=== PATIENT | male | born 1945 | race Caucasian/White ===

== ENCOUNTER 2017-07-30 07:24 | Inpatient (IN) | payer OTHER ==
[~2017-07-30] VITALS: Ht 175.3 cm; Wt 80.7 kg
[2017-07-30 08:29] LABS: ABSOLUTE BASOPHIL COUNT 0 /CUMM (0.0-0.2); ABSOLUTE EOSINOPHIL COUNT 0.2 /CUMM (0.0-0.7); ABSOLUTE GRANULOCYTE CT 14.6 /CUMM (1.4-6.5); ABSOLUTE LYMPH COUNT 1.6 /CUMM (1.2-3.4); ABSOLUTE MONOCYTE COUNT 0.7 /CUMM (0.10-0.60); BASOPHIL % 0 % (0.0-2.0); GRANULOCYTE % 85.6 % (42.2-75.2); HEMATOCRIT 39.2 % (42-52); MEAN CORPUSCULAR VOLUME 65.8 FL (80.0-94.0); MEAN PLATELET VOLUME 9.2 FL (7.4-10.4); PLATELET COUNT 246 /CUMM (130-400); RED BLOOD CELL CT 5.95 /CUMM (4.70-6.10); WHITE BLOOD CELL COUNT 17.1 /CUMM (4.8-10.8)
--- NOTE | 2017-07-30 09:15 | ED GI/GU/ABDOMINAL COMPLAINT ---
History of Present Illness General Chief Complaint: Male Genitourinary Problems Stated Complaint: PAINFUL URINATION Source: patient, family, old records Exam Limitations: no limitations Vital Signs & Intake/Output Vital Signs & Intake/Output Vital Signs Date Time Temp Pulse Resp B/P B/P Pulse O2 O2 Flow FiO2 Mean Ox Delivery Rate 07/30 0729 97.8 98 18 145/88 96 Room Air Allergies Coded Allergies: Penicillins (Severe, SWOLLEN TONGUE 07/30/17) Triage Note: PT STATES HE HAS PAIN IN HIS LOWER ABD AND STATES WHEN HE URINATES IT HURTS AND COLÓN. PT STATES THIS ALL BEGAN YESTERDAY ,. Triage Nurses Notes Reviewed? yes Onset: yesterday Duration: day(s):, constant, continues in ED, getting worse Timing: recent history Quality/Severity: aching, fullness, moderate, severe Location: left lower quadrant, suprapubic Radiation: no radiation Activities at Onset: rest Prior Abdominal Problems: none Past Sexual History: Unobtainable at this time Modifying Factors: Worsens With: movement, palpation. Associated Symptoms: abdominal pain, dysuria, loss of appetite HPI: 1 day prior to admission patient complains of painful urination left lower quadrant suprapubic fullness and episode of dizziness and anorexia. Denies fever chills chest pain cough shortness of breath headache vomiting diarrhea rash. Past History Travel History Traveled to [place] past 21 day No Medical History Any Pertinent Medical History? see below for history Cardiovascular: hypertension Cancer(s): THROAT CA Surgical History Surgical History: non-contributory Psychosocial History What is your primary language [place] Tobacco Use: Quit >30 days ago ETOH Use: denies use Illicit Drug Use: denies illicit drug use Family History Hx Contributory? No Review of Systems Review of Systems Constitutional: Reports: no symptoms. EENTM: Reports: no symptoms. Respiratory: Reports: no symptoms. Cardiovascular: Reports: no symptoms. GI: Reports: see HPI, abdominal pain. Genitourinary: Reports: see HPI, dysuria, pain. Musculoskeletal: Reports: no symptoms. Skin: Reports: no symptoms. Neurological/Psychological: Reports: no symptoms. Hematologic/Endocrine: Reports: no symptoms. Immunologic/Allergic: Reports: no symptoms. All Other Systems: Reviewed and Negative Physical Exam Physical Exam General Appearance: well developed/nourished, alert, awake, anxious, moderate distress Head: atraumatic, normal appearance Eyes: Bilateral: normal appearance, PERRL, EOMI, normal inspection. Ears, Nose, Throat, Mouth: hearing grossly normal, moist mucous membrane Neck: normal inspection, supple, full range of motion, normal alignment Respiratory: normal breath sounds, chest non-tender, no respiratory distress, quiet respiration, lungs clear Cardiovascular: regular rate/rhythm, normal peripheral pulses, norml femoral pulses equa Peripheral Pulses: 4+ carotid (R), 4+ carotid (L) Gastrointestinal: normal bowel sounds, soft, distention, tenderness Male Genitals: normal genitalia Back: normal inspection, normal range of motion Extremities: normal range of motion, no ligament instability Neurologic/Psych: no motor/sensory deficits, awake, alert, oriented x 3, normal gait, normal mood/affect, 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 No Sepsis Present: No Sepsis Focused Exam Completed? No Progress Differential Diagnosis: appendicitis, diverticulitis, pyelonephritis, ureterolithiasis, urinary retention, urethritis, UTI/pyelo Plan of Care: Orders Procedure Date/time Status Code Status 07/30 1053 Active Admit to inpatient 07/30 1005 Active EKG 07/30 0926 Active MAGNESIUM 07/30 0807 Complete COMPREHENSIVE METABOLIC PANEL 07/30 0807 Complete CBC WITHOUT DIFFERENTIAL 07/30 0807 Complete CULTURE,URINE 07/30 0736 Active URINALYSIS 07/30 0736 Complete Current Medications Sig/Merline Start time Last Medication Dose Stop Time Status Admin Sodium Chloride 1,000 ML ONCE ONE 07/30 1045 AC 07/30 (Normal Saline 0.9%) 07/30 1844 1049 Ciprofloxacin 400 MG ONCE ONE 07/30 0915 CAN (Cipro) 07/30 0916 Laboratory Tests 07/30/17 0815: Anion Gap 12, Estimated GFR 46 L, BUN/Creatinine Ratio 17.3, Glucose 128 H, Calcium 8.5, Magnesium 1.9, Total Bilirubin 4.0 H, AST 19, ALT 34, Alkaline Phosphatase 52, Total Protein 7.1, Albumin 3.9, Globulin 3.2, Albumin/Globulin Ratio 1.2, CBC w Diff MAN DIFF ORDERED, RBC 5.95, MCV 65.8 L, MCH 21.0 L, MCHC 32.0 L, RDW 16.0 H, MPV 9.2, Gran % 85.6 H, Lymphocytes % 9.3 L, Monocytes % 4.1, Eosinophils % 1.0, Basophils % 0, Absolute Granulocytes 14.6 H, Absolute Lymphocytes 1.6, Absolute Monocytes 0.7 H, Absolute Eosinophils 0.2, Absolute Basophils 0, Platelet Estimate VERIFIED BY SMEAR, Polychromasia 1+, Hypochromic- Microcytic 1+, Poikilocytosis 1+, Basophilic Stippling 1+, Anisocytosis 1+, Microcytic Cells 1+, Ovalocytes 1+ 07/30/17 0737: Urine Color YEL, Urine Clarity CLEAR, Urine pH 6.0, Ur Specific [place] 1.025, Urine Protein NEG, Urine Ketones NEG, Urine Nitrite NEG, Urine Bilirubin NEG, Urine Urobilinogen 1.0, Ur Leukocyte Esterase NEG, Ur Microscopic EXAM NOT REQUIRED, Urine Hemoglobin NEG, Urine Glucose NEG Microbiology 07/30 736 URINE ROUT: Urine Culture - RECD Diagnostic Imaging: Viewed by Me: CT Scan. Discussed w/RAD: CT Scan. Radiology Impression: Free intraperitoneal air probably from acute diverticulitis of the sigmoid colon. Bilateral renal cysts. Fatty liver. Initial ED EKG: normal axis, normal intervals, normal p-waves, normal QRS complex, normal sinus rhythm, no ST T wave changes Rhythm Strip: normal sinus rhythm Departure Departure Time of Disposition: 925 Disposition: STILL A PATIENT Condition: Fair Clinical Impression Primary Impression: Perforation bowel Secondary Impressions: Chronic kidney disease, Diverticulitis, Dysuria, Leukocytosis Referrals: Winston Georges MD (PCP/Family) Departure Forms: Customer Survey General Discharge Information Admission Note Spoke With: Mario Alberto Lezama DO Documentation of Exam: Documentation of any treatments & extenuating circumstances including Concerns Regarding Discharge (functional status, medication knowledge or non-compliance, living conditions, etc.) that warrant an admission rather than observation: Nothing by mouth IV fluids IV antibiotics IV analgesia surgical evaluation medication adjustment continuing care discharge planning Critical Care Note Critical Care Note Critical Care Time: 30-74 min (35)
--- NOTE | 2017-07-30 09:16 | CT SCAN REPORT ---
EXAMINATION: CT ABDOMEN AND PELVIS WITHOUT CONTRAST CLINICAL INFORMATION: Dysuria. Chronic kidney disease. Evaluate for pyelonephritis or stone. COMPARISON: None TECHNIQUE: Multidetector volumetric imaging was performed from the superior aspect of the liver through the pubic symphysis. Sagittal and coronal reformatted images were obtained on the technologist's workstation. DLP: 448 mGy-cm FINDINGS: LUNG BASES: The visualized lung bases are unremarkable. LIVER, GALLBLADDER, AND BILIARY TREE: The liver is low in attenuation suggestive of fatty infiltration. No focal liver lesion is seen. The gallbladder is unremarkable. PANCREAS: Unremarkable. SPLEEN: Unremarkable. ADRENAL GLANDS: Unremarkable. KIDNEYS AND URETERS: There are 2 left renal cysts measuring 3 x 3.5 cm in the upper pole and 2.5 cm in the peripelvic midpole. There is a single left renal cysts measuring 2 cm in the peripelvic left mid to upper pole. No stone is seen. No renal mass is appreciated. No ureteral stone or ureteral dilatation is seen. BLADDER: Unremarkable. GASTROINTESTINAL TRACT: There is free intraperitoneal air. There is evidence of diverticulosis. There is wall thickening, stranding of the fat and small extraluminal air collection adjacent to the anterior proximal sigmoid colon measuring 1 x 3 cm suggestive of acute diverticulitis. Small and large bowel is otherwise unremarkable. The appendix is unremarkable. ABDOMINAL WALL: No significant hernia is appreciated. LYMPH NODES: There are no enlarged lymph nodes. There is no ascites. VASCULAR: Unremarkable. PELVIC VISCERA: The prostate gland is slightly enlarged measuring 3 x 4.8 cm in AP and transverse dimension. OSSEOUS STRUCTURES: There are degenerative changes of the spine. There is a small sclerotic lesion in the right iliac crest probably representing a bone island. IMPRESSION: Free intraperitoneal air probably from acute diverticulitis of the sigmoid colon. Bilateral renal cysts. Fatty liver. Findings were communicated to Dr. Reddy by telephone on 07/30/2017 at 9:10 AM.
--- NOTE | 2017-07-30 09:42 | History & Physical ---
HerreraGail cooper 07/30/17 2508: General Information and HPI MD Statement: I have seen and personally examined SIMA RICHARDSON JR and documented this H&P. The patient is a 71 year old M who presented with a patient stated chief complaint of []. Source of Information: patient Exam Limitations: no limitations History of Present Illness: This is a 71yo M with htn and remote hx of throat cancer treated with radiation more than 20 years ago. He presents to the ED complaining of lower abdominal pain and dysurea that started yesterday evening. Deneis fevers. Denies nasea/ vomiting. Denies change in bowel function. Allergies/Medications Allergies: Coded Allergies: Penicillins (Severe, SWOLLEN TONGUE 07/30/17) Past History Travel History Traveled to [place] past 21 day No Medical History Cardiovascular: hypertension Cancer(s): THROAT CA Surgical History Surgical History: non-contributory Past Family/Social History Psychosocial History Smoking Status: Former Smoker ETOH Use: denies use Illicit Drug Use: denies illicit drug use Sexual History Past Sexual History Unobtainable at this time Review of Systems Review of Systems Constitutional: Denies: chills, fever. Cardiovascular: Denies: no symptoms. Respiratory: Denies: no symptoms. GI: Reports: see HPI. Genitourinary: Reports: see HPI, dysuria. Musculoskeletal: Denies: no symptoms. Exam & Diagnostic Data Last 24 Hrs of Vital Signs/I&O Vital Signs Date Time Temp Pulse Resp B/P B/P Pulse O2 O2 Flow FiO2 Mean Ox Delivery Rate 07/30 0729 97.8 98 18 145/88 96 Room Air Intake & Output 07/30 1600 07/30 0800 07/30 0000 Intake Total Output Total 100 Balance -100 Output, Urine 100 Patient 178 lb Weight Weight Reported by Patient Measurement Method Physical Exam General Appearance Alert, No Acute Distress Skin No Rashes Skin Temp/Moisture Exam: Warm/Dry HEENT Atraumatic, EOMI, Mucous Membr. moist/pink Neck Supple Cardiovascular Regular Rate Lungs Clear to Auscultation Abdomen Normal Bowel Sounds, Soft, tender in lower abdomen, no rebound tenderness, +Rosving sign Extremities No Clubbing, No Cyanosis, No Edema, Normal Pulses, No Tenderness/ Swelling Last 24 Hrs of Labs/Félix: Laboratory Tests 07/30/17 0815: Anion Gap 12, Estimated GFR 46 L, BUN/Creatinine Ratio 17.3, Glucose 128 H, Calcium 8.5, Magnesium 1.9, Total Bilirubin 4.0 H, AST 19, ALT 34, Alkaline Phosphatase 52, Total Protein 7.1, Albumin 3.9, Globulin 3.2, Albumin/Globulin Ratio 1.2, CBC w Diff MAN DIFF ORDERED, RBC 5.95, MCV 65.8 L, MCH 21.0 L, MCHC 32.0 L, RDW 16.0 H, MPV 9.2, Gran % 85.6 H, Lymphocytes % 9.3 L, Monocytes % 4.1, Eosinophils % 1.0, Basophils % 0, Absolute Granulocytes 14.6 H, Absolute Lymphocytes 1.6, Absolute Monocytes 0.7 H, Absolute Eosinophils 0.2, Absolute Basophils 0, Platelet Estimate VERIFIED BY SMEAR, Polychromasia 1+, Hypochromic- Microcytic 1+, Poikilocytosis 1+, Basophilic Stippling 1+, Anisocytosis 1+, Microcytic Cells 1+, Ovalocytes 1+ 07/30/17 0737: Urine Color YEL, Urine Clarity CLEAR, Urine pH 6.0, Ur Specific [place] 1.025, Urine Protein NEG, Urine Ketones NEG, Urine Nitrite NEG, Urine Bilirubin NEG, Urine Urobilinogen 1.0, Ur Leukocyte Esterase NEG, Ur Microscopic EXAM NOT REQUIRED, Urine Hemoglobin NEG, Urine Glucose NEG Microbiology 07/30 736 URINE ROUT: Urine Culture - RECD Diagnostic Data Other Results EXAM TYPE: CAT - CT ABD & PELVIS W/O IV CONTRAS EXAMINATION: CT ABDOMEN AND PELVIS WITHOUT CONTRAST CLINICAL INFORMATION: Dysuria. Chronic kidney disease. Evaluate for pyelonephritis or stone. COMPARISON: None TECHNIQUE: Multidetector volumetric imaging was performed from the superior aspect of the liver through the pubic symphysis. Sagittal and coronal reformatted images were obtained on the technologist's workstation. DLP: 448 mGy-cm FINDINGS: LUNG BASES: The visualized lung bases are unremarkable. LIVER, GALLBLADDER, AND BILIARY TREE: The liver is low in attenuation suggestive of fatty infiltration. No focal liver lesion is seen. The gallbladder is unremarkable. PANCREAS: Unremarkable. SPLEEN: Unremarkable. ADRENAL GLANDS: Unremarkable. KIDNEYS AND URETERS: There are 2 left renal cysts measuring 3 x 3.5 cm in the upper pole and 2.5 cm in the peripelvic midpole. There is a single left renal cysts measuring 2 cm in the peripelvic left mid to upper pole. No stone is seen. No renal mass is appreciated. No ureteral stone or ureteral dilatation is seen. BLADDER: Unremarkable. GASTROINTESTINAL TRACT: There is free intraperitoneal air. There is evidence of diverticulosis. There is wall thickening, stranding of the fat and small extraluminal air collection adjacent to the anterior proximal sigmoid colon measuring 1 x 3 cm suggestive of acute diverticulitis. Small and large bowel is otherwise unremarkable. The appendix is unremarkable. ABDOMINAL WALL: No significant hernia is appreciated. LYMPH NODES: There are no enlarged lymph nodes. There is no ascites. VASCULAR: Unremarkable. PELVIC VISCERA: The prostate gland is slightly enlarged measuring 3 x 4.8 cm in AP and transverse dimension. OSSEOUS STRUCTURES: There are degenerative changes of the spine. There is a small sclerotic lesion in the right iliac crest probably representing a bone island. IMPRESSION: Free intraperitoneal air probably from acute diverticulitis of the sigmoid colon. Bilateral renal cysts. Fatty liver. Findings were communicated to Dr. Reddy by telephone on 07/30/2017 at 9:10 AM. DICTATED BY: Madi STAPLES,Leydi Morgan DATE/TIME DICTATED:07/30/17902 SAW STRAIGHTENER:NISHA DATE/TIME TRANSCRIBED:07/30/17902 Assessment/Plan Assessment: this is a 70yo M with hx of htn and throat CA now here with likely diverticulitis with perforation by CT. Stable. Admit for IV ABX- Cipro/Flagyl PT IS ALLERGIC TO PENICILLIN IVF pain management bowel rest- ice chips and sips with meds ok FU am labs regular home meds dvt ppx- hsq and alps, encourage ambulation As Ranked By This Provider Problem List: 1. Diverticulitis Core Measures/Misc (10/23) Acute Coronary Syndrome ACS Diagnosis: No Congestive Heart Failure Congestive Heart Failure Diagnosis No Cerebrovascular Accident CVA/TIA Diagnosis: No VTE (View Protocol) VTE Risk Factors Acute Medical Illness No Mechanical VTE Prophylaxis d/t N/A MechProphylax Ordered No VTE Pharm Prophylaxis d/t NA PharmProphylax ordered Sepsis (View protocol) Sepsis Present: No If YES complete Sepsis Event Note If YES complete Sepsis Event Note Mario Alberto Lezama DO 07/30/17 2354: General Information and HPI Allergies/Medications Home Med list Aspirin (Ecotrin*) 81 MG TABLET. 1 TAB PO DAILY HEART/BLOOD (Reported) Losartan/Hydrochlorothiazide (Losartan-Hctz 100-25 MG Tab) 100 MG-25 MG TABLET 1 TAB PO DAILY BP (Reported) Core Measures/Misc (10/23) Sepsis (View protocol) If YES complete Sepsis Event Note If YES complete Sepsis Event Note Attending MD Review Statement Attending Statement Attending MD Statement: examined this patient, discuss w/resident/PA/AIRCRAFT LINE ASSEMBLER, agreed w/resident/PA/AIRCRAFT LINE ASSEMBLER, reviewed EMR data (avail), reviewed images Attending Assessment/Plan: Patient seen and examined, agree with above. Abdominal pain and dysuria since last night, pain became more severe and he presented to the ED. Currently laying comfortable in bed and reports improvement in abdominal pain. AVSS. Abd-soft, + LLQ tenderness, no peritoneal signs. WBC 17. CT scan - + free intraperitoneal air, +diverticulitis with a small air/fluid collection in sigmoid colon. Given patients overall clinical stability and no signs of diffuse peritonitis will treat conservatively for now. NPO/IVF/IV Abx, serial abdominal exams, Labs in AM , I did explain that if clinically he worsens he may need an emergent laparotomy with an ostomy. Patient understands everything and agrees with the plan. D/W ED staff.
--- NOTE | 2017-07-30 11:47 | Admission Core Measures ---
Acute Coronary Syndrome (CM) ACS Core Measures Acute Coronary Syndrome Diagnosis No Congestive Heart Failure (NEW) CHF Core Measures Congestive Heart Failure Diagnosis No Cerebrovascular Accident CVA Core Measures CVA/TIA Diagnosis No Venous Thromboembolism VTE Core [place] (View Protocol) VTE Risk Factors Acute Medical Illness No Mechanical VTE Prophylaxis d/t N/A MechProphylax Ordered No VTE Pharm Prophylaxis d/t NA PharmProphylax ordered Problem List As ranked by this Provider includes Assessment & Plan 1. Diverticulitis
[2017-07-30] MEDS ORDERED: LOSARTAN-HCTZ1 EAC2 PO (12:19)
[2017-07-30] MEDS ORDERED: ASPIRIN EC81 M1 PO (12:19)
[2017-07-30 15:30] VITALS: BP 124/60
--- NOTE | 2017-07-30 16:56 | Cons- Medical ---
General Information and HPI Consulting Request Date of Consult: 07/30/17 Requested By: Mario Alberto Lezmaa DO Reason for Consult: Follow the patient medically has slight acute kidney insufficiency Source of Information: patient Exam Limitations: no limitations History of Present Illness: 71-year-old white male known to me for many years he has not wanted to have a colonoscopy in the past. Patient comes in this morning with abdominal pain for 1 day in the lower abdomen maybe some dysuria. Denies any fever no diarrhea. In the emergency room the workup showed a white count of 17,000 and a CAT scan of the abdomen showed some free air in the abdomen probably related to sigmoid diverticulitis, patient was admitted, kept n.p.o. and started on the proper antibiotic therapy. Got some IV fluids will follow kidney function. We will check all the cultures Allergies/Medications Allergies: Coded Allergies: Penicillins (Severe, SWOLLEN TONGUE 07/30/17) Home Med List: Aspirin (Ecotrin*) 81 MG TABLET.DR 1 TAB PO DAILY HEART/BLOOD (Reported) Losartan/Hydrochlorothiazide (Losartan-Hctz 100-25 MG Tab) 100 MG-25 MG TABLET 1 TAB PO DAILY BP (Reported) Current Medications: Current Medications Sig/Merline Start time Last Medication Dose Route Stop Time Status Admin Acetaminophen 1,000 MG Q6H 07/30 1600 AC N/A 1 UNIT IV 07/31 1014 Acetaminophen 1,000 MG Q6 07/30 1200 DC IV 07/31 1159 Ciprofloxacin 400 MG Q12 07/30 2100 CAN Dextrose/Water 200 ML IV Ciprofloxacin 400 MG Q12 07/30 2100 AC Dextrose/Water 200 ML IV Ciprofloxacin 400 MG ONCE ONE 07/30 0930 DC 07/30 Dextrose/Water 200 ML IV 07/30 1029 0942 Ciprofloxacin 400 MG ONCE ONE 07/30 0915 CAN IV 07/30 0916 Dextrose/Sodium 1,000 ML .Q8H 07/30 1545 AC 07/30 Chloride IV 1620 Heparin Sodium 5,000 UNIT Q8 07/30 1548 DC (Porcine) SC Heparin Sodium 5,000 UNIT Q8 07/30 1400 AC (Porcine) SC Hydrochlorothiazide 25 MG DAILY 07/31 0900 AC PO Losartan Potassium 100 MG DAILY 07/31 0900 AC PO Metronidazole 500 MG IQ8 07/30 1600 CAN N/A 1 UNIT IV Metronidazole 500 MG IQ8 07/30 1600 AC N/A 1 UNIT IV Metronidazole 500 MG ONCE ONE 07/30 0915 DC 07/30 N/A 1 UNIT IV 07/30 1014 0926 Morphine Sulfate 2 MG Q4P PRN 07/30 1600 AC IV Morphine Sulfate 4 MG Q4H PRN 07/30 1600 AC 07/30 IV 1611 Morphine Sulfate 2 MG Q2P PRN 07/30 1545 DC IV Morphine Sulfate 4 MG Q2P PRN 07/30 1545 DC IV Morphine Sulfate 4 MG ONCE ONE 07/30 1045 DC 07/30 IV 07/30 1046 1049 Morphine Sulfate 0 .STK-MED ONE 07/30 1043 DC .ROUTE Morphine Sulfate 0 .STK-MED ONE 07/30 0934 DC .ROUTE Morphine Sulfate 4 MG ONCE ONE 07/30 0930 DC 07/30 IV 07/30 0931 0942 Ondansetron HCl 4 MG Q6P PRN 07/30 1545 AC IV Phenazopyridine HCl 0 .STK-MED ONE 07/30 0820 DC PO Phenazopyridine HCl 200 MG ONCE ONE 07/30 0815 DC 07/30 PO 07/30 0816 0821 Sodium Chloride 1,000 ML ONCE ONE 07/30 1045 DC 07/30 IV 07/30 1844 1049 Sodium Chloride 1,000 ML BOLUS ONE 07/30 0815 DC 07/30 IV 07/30 0914 0821 Review of Systems Review of Systems Constitutional: Reports: see HPI. Past History Travel History Traveled to [place] past 21 day No Medical History Cardiovascular: hypertension Cancer(s): THROAT CA Surgical History Surgical History: non-contributory Psychosocial History Smoking Status: Former Smoker ETOH Use: denies use Illicit Drug Use: denies illicit drug use Exam & Diagnostic Data Last 24 Hrs of Vital Signs/I&O Vital Signs Date Time Temp Pulse Resp B/P B/P Pulse O2 O2 Flow FiO2 Mean Ox Delivery Rate 07/30 1400 98.5 88 20 146/81 96 Room Air 07/30 1056 98.1 89 18 140/86 95 Room Air Room Air 07/30 0900 96 20 138/78 96 Room Air 07/30 0729 97.8 98 18 145/88 96 Room Air Intake & Output 07/30 1600 07/30 0800 07/30 0000 Intake Total Output Total 350 100 Balance -350 -100 Output, Urine 350 100 Patient 178 lb Weight Weight Reported by Patient Measurement Method Physical Exam General Appearance: well developed/nourished, no apparent distress, alert, awake Head: atraumatic Eyes: Bilateral: normal appearance, PERRL, EOMI. Ears, Nose, Throat: normal pharynx Neck: supple, JVD Respiratory: decreased breath sounds Cardiovascular: regular rate/rhythm Gastrointestinal: soft, tenderness Rectal: deferred Back: normal inspection Extremities: no edema Neurologic/Psych: no motor/sensory deficits, awake, alert, oriented x 3, director of collections and archives II- XII nml as tested Cranial Nerves: normal hearing, normal speech, PERRL Skin: intact, normal color, warm/dry Last 24 Hrs of Labs/Félix: Laboratory Tests 07/30/17 0815: Anion Gap 12, Estimated GFR 46 L, BUN/Creatinine Ratio 17.3, Glucose 128 H, Calcium 8.5, Magnesium 1.9, Total Bilirubin 4.0 H, AST 19, ALT 34, Alkaline Phosphatase 52, Total Protein 7.1, Albumin 3.9, Globulin 3.2, Albumin/Globulin Ratio 1.2, CBC w Diff MAN DIFF ORDERED, RBC 5.95, MCV 65.8 L, MCH 21.0 L, MCHC 32.0 L, RDW 16.0 H, MPV 9.2, Gran % 85.6 H, Lymphocytes % 9.3 L, Monocytes % 4.1, Eosinophils % 1.0, Basophils % 0, Absolute Granulocytes 14.6 H, Absolute Lymphocytes 1.6, Absolute Monocytes 0.7 H, Absolute Eosinophils 0.2, Absolute Basophils 0, Platelet Estimate VERIFIED BY SMEAR, Polychromasia 1+, Hypochromic- Microcytic 1+, Poikilocytosis 1+, Basophilic Stippling 1+, Anisocytosis 1+, Microcytic Cells 1+, Ovalocytes 1+ 07/30/17 0737: Urine Color YEL, Urine Clarity CLEAR, Urine pH 6.0, Ur Specific [place] 1.025, Urine Protein NEG, Urine Ketones NEG, Urine Nitrite NEG, Urine Bilirubin NEG, Urine Urobilinogen 1.0, Ur Leukocyte Esterase NEG, Ur Microscopic EXAM NOT REQUIRED, Urine Hemoglobin NEG, Urine Glucose NEG Assessment/Plan Assessment/Plan None Problem List: 1. Perforation bowel 2. Diverticulitis 3. Leukocytosis 4. Dysuria 5. STEPHEN (acute kidney injury) Copies To: Mario Alberto Lezama DO; José Manuel STAPLESWinston Acknowledgment - Thank you for your consult request.
[2017-07-30 21:51] VITALS: BP 120/60
[2017-07-31 06:08] VITALS: BP 106/70
--- NOTE | 2017-07-31 07:33 | PN- Student ---
Humphrey Chavez 07/31/17 0713: Subjective Subjective: 7/10 abdominal pain, feels more acutely when moving/sitting up. Pain felt diffuse across inferior portion of the abdomen. No nausea, no vomiting, no bowel movents. Frequent flatus. Frequent urination, no more dysuria. Ambulates to bathroom. No chest pain, no shortness of breath, no calf pain. Objective Objective: Vitals: Temp: 97.0=Tcurrent 99.6=Tmax Pulse: 81 Respiratory Rate: 20 BP: 106/70 Pulse ox: 93 on room air I/O's I: 500 IV 8hr/500 IV 24hr O: 350 urine 8hr/800 urine 24hr Imaging: None Physical Exam: General: no acute distress. alert and oriented to time and place Pulm: clear to auscultation bilaterally Cardio: s1,s2, RRR Abdomen: soflty distended, +bowel sounds, tender with guarding in left illiac region. Extremities: calves soft, non tender bilaterally. DP/PT 2+ pulses Results Results: Laboratory Tests 07/30/17 0815: Anion Gap 12, Estimated GFR 46 L, BUN/Creatinine Ratio 17.3, Glucose 128 H, Calcium 8.5, Magnesium 1.9, Total Bilirubin 4.0 H, AST 19, ALT 34, Alkaline Phosphatase 52, Total Protein 7.1, Albumin 3.9, Globulin 3.2, Albumin/Globulin Ratio 1.2, CBC w Diff MAN DIFF ORDERED, RBC 5.95, MCV 65.8 L, MCH 21.0 L, MCHC 32.0 L, RDW 16.0 H, MPV 9.2, Gran % 85.6 H, Lymphocytes % 9.3 L, Monocytes % 4.1, Eosinophils % 1.0, Basophils % 0, Absolute Granulocytes 14.6 H, Absolute Lymphocytes 1.6, Absolute Monocytes 0.7 H, Absolute Eosinophils 0.2, Absolute Basophils 0, Platelet Estimate VERIFIED BY SMEAR, Polychromasia 1+, Hypochromic- Microcytic 1+, Poikilocytosis 1+, Basophilic Stippling 1+, Anisocytosis 1+, Microcytic Cells 1+, Ovalocytes 1+ 07/30/17 0737: Urine Color YEL, Urine Clarity CLEAR, Urine pH 6.0, Ur Specific [place] 1.025, Urine Protein NEG, Urine Ketones NEG, Urine Nitrite NEG, Urine Bilirubin NEG, Urine Urobilinogen 1.0, Ur Leukocyte Esterase NEG, Ur Microscopic EXAM NOT REQUIRED, Urine Hemoglobin NEG, Urine Glucose NEG Microbiology 07/30 0737 URINE ROUT: Urine Culture - RECD Assessment/Plan Assessment: 71 year old male Hospital day 1 with diverticulitis on medical management improving with less pain and no more dysuria. Plan: NPO IV fluids Cipro/flagyl Continue pain control plan Zofran for nausea Continue home meds ALPS/Heparin subQ for DVT prophylaxis Discuss with preceptor Mario Alberto Lezama DO 07/31/17 1539: Attending MD Review Statement Attending Sign Off Attending Cosign Statement: I have: examined this patient, reviewed [employer] EMR data, personally reviewd images, discussd w/resident/PA/SYSTEMS DEVELOPMENT CONSULTANT, discussed mgmt plan w/pt, agreed w/resident/ PA/SYSTEMS DEVELOPMENT CONSULTANT. Other Findings: Patient seen and examined, agree with above. Feels better, less pain, no more dysuria AVSS UO ok Abd-softly distended, LLQ tenderness Labd - WBC down to 12 -Cont IV Abx -NPO/IVF -IS/OOB
[2017-07-31 09:09] LABS: ABSOLUTE EOSINOPHIL COUNT 0.3 /CUMM (0.0-0.7); MEAN CORPUSCULAR HGB CONC 31.6 G/DL (33.0-37.0)
[2017-07-31 09:45] VITALS: BP 112/70
[2017-07-31 09:47] LABS: ABSOLUTE BASOPHIL COUNT 0.1 /CUMM (0.0-0.2); ABSOLUTE GRANULOCYTE CT 9.3 /CUMM (1.4-6.5); ABSOLUTE LYMPH COUNT 1.9 /CUMM (1.2-3.4); BASOPHIL % 0.5 % (0.0-2.0); GRANULOCYTE % 74.5 % (42.2-75.2); MEAN CORPUSCULAR HGB 20.8 PG (27.0-31.0); MEAN CORPUSCULAR VOLUME 65.8 FL (80.0-94.0); MEAN PLATELET VOLUME 9.5 FL (7.4-10.4); PLATELET COUNT 195 /CUMM (130-400); RED BLOOD CELL CT 5.18 /CUMM (4.70-6.10); WHITE BLOOD CELL COUNT 12.5 /CUMM (4.8-10.8)
[2017-07-31 10:01] LABS: HEMATOCRIT 34.1 % (42-52)
--- NOTE | 2017-07-31 10:35 | PN- Att Addend ---
Attending Addendum Attending Brief Note Patient feeling better less pain less burning with urination. Patient is still n.p.o.. Vital signs are stable no fever. No major changes on physical exam. His white count is 12.5 thousand today. Urine culture negative after 1 day. To continue treatment as per surgery. Follow-up labs. Intake & Output 07/31 1600 07/31 0800 07/31 0000 07/30 1600 07/30 0800 07/30 0000 Intake Total 1000 500 Output Total 300 350 350 100 Balance -300 1000 150 -350 -100 Intake, IV 1000 500 Intake, Oral 0 0 Output, Urine 300 350 350 100 Patient 178 lb 178 lb Weight Weight Reported by Patient Reported by Patient Measurement Method Current Medications Sig/Merline Start time Last Medication Dose Route Stop Time Status Admin Acetaminophen 1,000 MG Q6H 07/30 1600 DC 07/31 N/A 1 UNIT IV 07/31 1014 0316 Acetaminophen 1,000 MG Q6 07/30 1200 DC IV 07/31 1159 Ciprofloxacin 400 MG Q12 07/30 2100 CAN Dextrose/Water 200 ML IV Ciprofloxacin 400 MG Q12 07/30 2100 AC 07/31 Dextrose/Water 200 ML IV 0955 Dextrose/Sodium 1,000 ML .Q8H 07/30 1545 DC 07/31 Chloride IV 0313 Heparin Sodium 5,000 UNIT Q8 07/30 1548 DC (Porcine) SC Heparin Sodium 5,000 UNIT Q8 07/30 1400 AC 07/31 (Porcine) SC 0631 Hydrochlorothiazide 25 MG DAILY 07/31 0900 AC 07/31 PO 0800 Losartan Potassium 100 MG DAILY 07/31 0900 AC 07/31 PO 0801 Metronidazole 500 MG IQ8 07/30 1600 CAN N/A 1 UNIT IV Metronidazole 500 MG IQ8 07/30 1600 AC 07/31 N/A 1 UNIT IV 0801 Morphine Sulfate 2 MG Q4P PRN 07/30 1600 AC IV Morphine Sulfate 4 MG Q4H PRN 07/30 1600 AC 07/30 IV 1611 Morphine Sulfate 2 MG Q2P PRN 07/30 1545 DC IV Morphine Sulfate 4 MG Q2P PRN 07/30 1545 DC IV Morphine Sulfate 4 MG ONCE ONE 07/30 1045 DC 07/30 IV 07/30 1046 1049 Morphine Sulfate 0 .STK-MED ONE 07/30 1043 DC .ROUTE Ondansetron HCl 4 MG Q6P PRN 07/30 1545 AC IV Potassium Chloride 20 MEQ Q8H 07/31 1000 AC Sodium Chloride 1,000 ML IV Sodium Chloride 1,000 ML ONCE ONE 07/30 1045 DC 07/30 IV 07/30 1844 1049 Laboratory Tests 07/31/17 0815: Anion Gap 11, Estimated GFR 50 L, BUN/Creatinine Ratio 12.9, CBC w Diff NO MAN DIFF REQ, RBC 5.18, MCV 65.8 L, MCH 20.8 L, MCHC 31.6 L, RDW 16.0 H, MPV 9.5 , Gran % 74.5, Lymphocytes % 15.4 L, Monocytes % 7.6, Eosinophils % 2.0, Basophils % 0.5, Absolute Granulocytes 9.3 H, Absolute Lymphocytes 1.9, Absolute Monocytes 1.0 H, Absolute Eosinophils 0.3, Absolute Basophils 0.1 07/30/17 0815: Anion Gap 12, Estimated GFR 46 L, BUN/Creatinine Ratio 17.3, Glucose 128 H, Calcium 8.5, Magnesium 1.9, Total Bilirubin 4.0 H, AST 19, ALT 34, Alkaline Phosphatase 52, Total Protein 7.1, Albumin 3.9, Globulin 3.2, Albumin/Globulin Ratio 1.2, CBC w Diff MAN DIFF ORDERED, RBC 5.95, MCV 65.8 L, MCH 21.0 L, MCHC 32.0 L, RDW 16.0 H, MPV 9.2, Gran % 85.6 H, Lymphocytes % 9.3 L, Monocytes % 4.1, Eosinophils % 1.0, Basophils % 0, Absolute Granulocytes 14.6 H, Absolute Lymphocytes 1.6, Absolute Monocytes 0.7 H, Absolute Eosinophils 0.2, Absolute Basophils 0, Platelet Estimate VERIFIED BY SMEAR, Polychromasia 1+, Hypochromic- Microcytic 1+, Poikilocytosis 1+, Basophilic Stippling 1+, Anisocytosis 1+, Microcytic Cells 1+, Ovalocytes 1+ 07/30/17 0737: Urine Color YEL, Urine Clarity CLEAR, Urine pH 6.0, Ur Specific [place] 1.025, Urine Protein NEG, Urine Ketones NEG, Urine Nitrite NEG, Urine Bilirubin NEG, Urine Urobilinogen 1.0, Ur Leukocyte Esterase NEG, Ur Microscopic EXAM NOT REQUIRED, Urine Hemoglobin NEG, Urine Glucose NEG Vital Signs Date Time Temp Pulse Resp B/P B/P Pulse O2 O2 Flow FiO2 Mean Ox Delivery Rate 07/31 0945 87 112/70 07/31 0801 84 112/72 07/31 0608 97.0 81 20 106/70 93 Room Air 07/30 2151 99.5 93 18 120/60 92 Room Air 07/30 1652 95 Room Air 07/30 1530 98.4 96 18 124/60 95 Room Air 07/30 1400 98.5 88 20 146/81 96 Room Air 07/30 1056 98.1 89 18 140/86 95 Room Air Room Air Potassium 3.4, please replace.
[2017-07-31 14:18] VITALS: BP 120/64
[2017-07-31 22:25] VITALS: BP 140/80
[2017-08-01 06:34] VITALS: BP 110/70
--- NOTE | 2017-08-01 07:29 | PN- Student ---
See Addendum Humphrey Chavez 08/01/17 0713: Subjective Subjective: 7/10 pain, only feels when coughing or having bowel movements. Frequent watery brown bowel movements begining yesterday. frequent flatus. Vomited once yesterday. Emesis was yellow/brown. No nausea. Oob frequently to bathroom. no dysuria. no chest pain, no shortness of breath, no calf pain. Objective Objective: Vitals: Temperature: 97.9 = Tcurrent 98.4= T max Pulse: 89 Respiratory Rare: 20 BP: 110/70 Pulse Ox: 95 room air I/O I: 1250 IV 8hrs/ 3250 IV 24hrs O: Not recorded 8hrs/ 300 24hrs Imaging: None Physical Exam: General: No acute distress. Oriented to time and place Pulm: clear bilaterally Cardio: s1,s2, RRR Abdomen: softly distended, + bowel sounds, LLQ tenderness with guarding Extermities: calves soft bilaterally, DP/PT 2+ pulses Results Results: Laboratory Tests 07/31/17 0815: Anion Gap 11, Estimated GFR 50 L, BUN/Creatinine Ratio 12.9, CBC w Diff NO MAN DIFF REQ, RBC 5.18, MCV 65.8 L, MCH 20.8 L, MCHC 31.6 L, RDW 16.0 H, MPV 9.5 , Gran % 74.5, Lymphocytes % 15.4 L, Monocytes % 7.6, Eosinophils % 2.0, Basophils % 0.5, Absolute Granulocytes 9.3 H, Absolute Lymphocytes 1.9, Absolute Monocytes 1.0 H, Absolute Eosinophils 0.3, Absolute Basophils 0.1 07/30/17 0815: Anion Gap 12, Estimated GFR 46 L, BUN/Creatinine Ratio 17.3, Glucose 128 H, Calcium 8.5, Magnesium 1.9, Total Bilirubin 4.0 H, AST 19, ALT 34, Alkaline Phosphatase 52, Total Protein 7.1, Albumin 3.9, Globulin 3.2, Albumin/Globulin Ratio 1.2, CBC w Diff MAN DIFF ORDERED, RBC 5.95, MCV 65.8 L, MCH 21.0 L, MCHC 32.0 L, RDW 16.0 H, MPV 9.2, Gran % 85.6 H, Lymphocytes % 9.3 L, Monocytes % 4.1, Eosinophils % 1.0, Basophils % 0, Absolute Granulocytes 14.6 H, Absolute Lymphocytes 1.6, Absolute Monocytes 0.7 H, Absolute Eosinophils 0.2, Absolute Basophils 0, Platelet Estimate VERIFIED BY SMEAR, Polychromasia 1+, Hypochromic- Microcytic 1+, Poikilocytosis 1+, Basophilic Stippling 1+, Anisocytosis 1+, Microcytic Cells 1+, Ovalocytes 1+ 07/30/17 0737: Urine Color YEL, Urine Clarity CLEAR, Urine pH 6.0, Ur Specific [place] 1.025, Urine Protein NEG, Urine Ketones NEG, Urine Nitrite NEG, Urine Bilirubin NEG, Urine Urobilinogen 1.0, Ur Leukocyte Esterase NEG, Ur Microscopic EXAM NOT REQUIRED, Urine Hemoglobin NEG, Urine Glucose NEG Microbiology 07/30 736 URINE ROUT: Urine Culture - RES Assessment/Plan Assessment: 71 year old male hospital day 2 diverticululitis with perforation. doing well with return of bowel function and improved pain. Plan: IV Fluids NPO for now, consider advancing to clears Review pending labs Continue ABX Pain control PRN Zofran PRN nausea Encourage Oob Heparin Sub Q for DVT prophylaxis Incentive Spirometry 10x hour continue home meds Discuss with preceptor Gail Kwok 08/01/17 0751: Assessment/Plan Plan: AGREE WITH ABOVE. PT FEELING MUCH BETTER, LESS PAIN, MULT LOOSE STOOLS. DID HAVE ONE EPISODE OF VOMITING LAST NIGHT WHILE HE WAS COUGHING AND HAVING SOME REFULX. PT DENIES ANY NAUSEA. FELS READY TO ADVANCE DIET. AMBULATING. VOIDING ABD EXAM- LESS TENDER, +BOWEL SOUNDS, NON DISTENDED PLAN- MAY ADVANCE TO CLEARS AT LUNCH TODAY CONT IV ABX WHILE IN HOSPITAL PAIN MANAGEMENT FU AM LABS CONT HSQ FOR DVT PPX WILL DISCUSS WITH ATTENDING
[2017-08-01 08:07] LABS: ABSOLUTE BASOPHIL COUNT 0 /CUMM (0.0-0.2); ABSOLUTE EOSINOPHIL COUNT 0.4 /CUMM (0.0-0.7); ABSOLUTE LYMPH COUNT 1.5 /CUMM (1.2-3.4); ABSOLUTE MONOCYTE COUNT 0.8 /CUMM (0.10-0.60); BASOPHIL % 0.1 % (0.0-2.0); EOSINOPHIL % 2.9 % (0-5); GRANULOCYTE % 78.5 % (42.2-75.2); HEMATOCRIT 37.3 % (42-52); MEAN CORPUSCULAR HGB 20.8 PG (27.0-31.0); MEAN CORPUSCULAR HGB CONC 31.5 G/DL (33.0-37.0); MEAN CORPUSCULAR VOLUME 66.1 FL (80.0-94.0); MEAN PLATELET VOLUME 9.3 FL (7.4-10.4); PLATELET COUNT 236 /CUMM (130-400); RBC DISTRIBUTION WIDTH 16.2 % (11.5-14.5); RED BLOOD CELL CT 5.64 /CUMM (4.70-6.10); WHITE BLOOD CELL COUNT 12.8 /CUMM (4.8-10.8)
--- NOTE | 2017-08-01 10:09 | PN- Att Addend ---
Attending Addendum Attending Brief Note Last night had some diarrhea. The lower abdominal dysconfort is less. Vital signs stable, no fever.No major changes on physical WBC 12.8. To continue treatment as per surgery, check stools. follow up labs. patient will start clear liquid diet. Intake & Output 08/01 1600 08/01 0400 07/31 1600 07/31 0400 07/30 1600 07/30 0400 Intake Total 1650 1250 2000 500 Output Total 300 350 450 Balance 1650 1250 1700 150 -450 Intake, IV 1650 1250 2000 500 Intake, Oral 0 0 Number 3 2 Bowel Movements Output, Urine 300 350 450 Patient 178 lb 178 lb Weight Weight Reported by Patient Reported by Patient Measurement Method Current Medications Sig/[place] Start time Last Medication Dose Route Stop Time Status Admin Acetaminophen 1,000 MG Q6P PRN 07/31 2014 AC 07/31 N/A 1 UNIT IV 08/01 Acetaminophen 1,000 MG Q6H 07/30 1600 DC 07/31 N/A 1 UNIT IV 07/31 1014 1131 Ciprofloxacin 400 MG Q12 07/30 2100 AC 08/01 Dextrose/Water 200 ML IV 0947 Heparin Sodium 5,000 UNIT Q8 07/30 1400 AC 08/01 (Porcine) SC 0603 Hydrochlorothiazide 25 MG DAILY 07/31 0900 AC 08/01 PO 0814 Losartan Potassium 100 MG DAILY 07/31 0900 AC 08/01 PO 0814 Metronidazole 500 MG IQ8 07/30 1600 AC 08/01 N/A 1 UNIT IV 0814 Morphine Sulfate 2 MG Q4P PRN 07/30 1600 AC IV Morphine Sulfate 4 MG Q4H PRN 07/30 1600 AC 07/30 IV 1611 Ondansetron HCl 4 MG Q6P PRN 07/30 1545 AC IV Potassium Chloride 40 MEQ Q8H 07/31 1800 AC 08/01 Dextrose/Sodium 1,000 ML IV 0950 Chloride Potassium Chloride 20 MEQ Q8H 07/31 1645 DC Dextrose/Sodium 1,000 ML IV Chloride Potassium Chloride 40 MEQ 125 MLS/HR 07/31 1630 CAN IV Potassium Chloride 20 MEQ Q8H 07/31 1000 DC 07/31 Sodium Chloride 1,000 ML IV 1231 Laboratory Tests 08/01/17 0715: Anion Gap 11, Estimated GFR 54 L, BUN/Creatinine Ratio 10.8, CBC w Diff NO MAN DIFF REQ, RBC 5.64, MCV 66.1 L, MCH 20.8 L, MCHC 31.5 L, RDW 16.2 H, MPV 9.3 , Gran % 78.5 H, Lymphocytes % 12.0 L, Monocytes % 6.5, Eosinophils % 2.9, Basophils % 0.1, Absolute Granulocytes 10.0 H, Absolute Lymphocytes 1.5, Absolute Monocytes 0.8 H, Absolute Eosinophils 0.4, Absolute Basophils 0 07/31/17 0815: Anion Gap 11, Estimated GFR 50 L, BUN/Creatinine Ratio 12.9, CBC w Diff NO MAN DIFF REQ, RBC 5.18, MCV 65.8 L, MCH 20.8 L, MCHC 31.6 L, RDW 16.0 H, MPV 9.5 , Gran % 74.5, Lymphocytes % 15.4 L, Monocytes % 7.6, Eosinophils % 2.0, Basophils % 0.5, Absolute Granulocytes 9.3 H, Absolute Lymphocytes 1.9, Absolute Monocytes 1.0 H, Absolute Eosinophils 0.3, Absolute Basophils 0.1 07/30/17 0815: Anion Gap 12, Estimated GFR 46 L, BUN/Creatinine Ratio 17.3, Glucose 128 H, Calcium 8.5, Magnesium 1.9, Total Bilirubin 4.0 H, AST 19, ALT 34, Alkaline Phosphatase 52, Total Protein 7.1, Albumin 3.9, Globulin 3.2, Albumin/Globulin Ratio 1.2, CBC w Diff MAN DIFF ORDERED, RBC 5.95, MCV 65.8 L, MCH 21.0 L, MCHC 32.0 L, RDW 16.0 H, MPV 9.2, Gran % 85.6 H, Lymphocytes % 9.3 L, Monocytes % 4.1, Eosinophils % 1.0, Basophils % 0, Absolute Granulocytes 14.6 H, Absolute Lymphocytes 1.6, Absolute Monocytes 0.7 H, Absolute Eosinophils 0.2, Absolute Basophils 0, Platelet Estimate VERIFIED BY SMEAR, Polychromasia 1+, Hypochromic- Microcytic 1+, Poikilocytosis 1+, Basophilic Stippling 1+, Anisocytosis 1+, Microcytic Cells 1+, Ovalocytes 1+ 07/30/17 0737: Urine Color YEL, Urine Clarity CLEAR, Urine pH 6.0, Ur Specific [place] 1.025, Urine Protein NEG, Urine Ketones NEG, Urine Nitrite NEG, Urine Bilirubin NEG, Urine Urobilinogen 1.0, Ur Leukocyte Esterase NEG, Ur Microscopic EXAM NOT REQUIRED, Urine Hemoglobin NEG, Urine Glucose NEG Microbiology 07/30 736 URINE ROUT: Urine Culture - COMP Microbiology 07/30 736 URINE ROUT: Urine Culture - COMP Vital Signs Date Time Temp Pulse Resp B/P B/P Pulse O2 O2 Flow FiO2 Mean Ox Delivery Rate 08/01 0814 97.9 89 20 132/80 08/01 0634 97.9 89 20 110/70 95 Room Air 07/31 2225 98.4 91 20 140/80 93 Room Air 07/31 1418 98.4 82 20 120/64 96 Room Air Potassium improved.
[2017-08-01 14:19] VITALS: BP 120/85
[2017-08-01 22:42] VITALS: BP 126/80
[2017-08-02 06:20] VITALS: BP 132/80
--- NOTE | 2017-08-02 07:55 | PN- Student ---
William Chavezh 08/02/17 0751: Subjective Subjective: Reduced LLQ pain. watery, approx 12 brown bowel movements similar to before. patient concerned related to ABX. frequent flatus. 1 episode of emesis, occured while coughing. denied blood in emisis or bowel movements. rare belching. No nausea. tolerated clear liquid diet, but reduced appetite. OOB frequently. uses incentive spirometry every hour. no chest pain, no shortness of breath, no calf pain. Objective Objective: Vitals: Temp: 98.1 = Tcurrent, Tmax= 98.3 Pulse rate: 70 Respiratory rate:18 BP:132/80 Pulse Ox 95 room air I/O: I: 120 oral 8hr/ 120 oral 24hr 875 IV 8hr/875 24hr O: not recorded Imaging: none Physical Exam General: No acute distress, alert and oriented Pulm: clear to auscultation bilaterally Cardio; s1,s2,rrr Abdomen: softly distended, +bowel sounds, LLQ tenderness to palpation. Extremities: 2+DP/PT pulse, Calves soft bilaterally Results Results: Laboratory Tests 08/02/17 0645: CBC w Diff Pending, WBC Pending, RBC Pending, Hgb Pending, Hct Pending, MCV Pending, MCH Pending, MCHC Pending, RDW Pending, Plt Count Pending, MPV Pending 08/01/17 0715: Anion Gap 11, Estimated GFR 54 L, BUN/Creatinine Ratio 10.8, CBC w Diff NO MAN DIFF REQ, RBC 5.64, MCV 66.1 L, MCH 20.8 L, MCHC 31.5 L, RDW 16.2 H, MPV 9.3 , Gran % 78.5 H, Lymphocytes % 12.0 L, Monocytes % 6.5, Eosinophils % 2.9, Basophils % 0.1, Absolute Granulocytes 10.0 H, Absolute Lymphocytes 1.5, Absolute Monocytes 0.8 H, Absolute Eosinophils 0.4, Absolute Basophils 0 07/31/17 0815: Anion Gap 11, Estimated GFR 50 L, BUN/Creatinine Ratio 12.9, CBC w Diff NO MAN DIFF REQ, RBC 5.18, MCV 65.8 L, MCH 20.8 L, MCHC 31.6 L, RDW 16.0 H, MPV 9.5 , Gran % 74.5, Lymphocytes % 15.4 L, Monocytes % 7.6, Eosinophils % 2.0, Basophils % 0.5, Absolute Granulocytes 9.3 H, Absolute Lymphocytes 1.9, Absolute Monocytes 1.0 H, Absolute Eosinophils 0.3, Absolute Basophils 0.1 07/30/17 0815: Anion Gap 12, Estimated GFR 46 L, BUN/Creatinine Ratio 17.3, Glucose 128 H, Calcium 8.5, Magnesium 1.9, Total Bilirubin 4.0 H, AST 19, ALT 34, Alkaline Phosphatase 52, Total Protein 7.1, Albumin 3.9, Globulin 3.2, Albumin/Globulin Ratio 1.2, CBC w Diff MAN DIFF ORDERED, RBC 5.95, MCV 65.8 L, MCH 21.0 L, MCHC 32.0 L, RDW 16.0 H, MPV 9.2, Gran % 85.6 H, Lymphocytes % 9.3 L, Monocytes % 4.1, Eosinophils % 1.0, Basophils % 0, Absolute Granulocytes 14.6 H, Absolute Lymphocytes 1.6, Absolute Monocytes 0.7 H, Absolute Eosinophils 0.2, Absolute Basophils 0, Platelet Estimate VERIFIED BY SMEAR, Polychromasia 1+, Hypochromic- Microcytic 1+, Poikilocytosis 1+, Basophilic Stippling 1+, Anisocytosis 1+, Microcytic Cells 1+, Ovalocytes 1+ Assessment/Plan Assessment: 71 year old male hospital day 3 for perforated diverticulitis doing well, tolerating clear liquids, oob, returned bowel function, and reduced wbc count. Plan: Advance diet to low residue Continue Abx, change to PO if dc Continue pain control Continue Antinausea Continue Sub Q heparin/ALPS OOB Continue home meds Plan for discharge Arabella Mesa 08/02/17 1014: Assessment/Plan Plan: AGREE WITH ABOVE PA-S NOTE WILL ADVANCE TO FULLS TODAY AND LOW RESIDUE TOMORROW MORNING IF TOLERATING CONTINUE IV CIPRO / FLAGYL CBC IN AM LIKELY D/C HOME TOMORROW WITH ANTIBIOTICS IF TOLERATING DIET ADVANCEMENT D/W
--- NOTE | 2017-08-02 07:56 | Patient Discharge Instructions ---
Discharge Instructions General Discharge Information You were seen/treated for: acute sigmoid diverticulitis You had these procedures: bowel rest, iv antibiotics Watch for these problems: fever>101.3, increased pain, redness/swelling/drainage, dizziness, shortness of breath, chest pains Diet Continue normal diet: No Recommended Diet: Low Residue Activity Full Activity/No Limits: Yes Activity Self Limited: Yes Acute Coronary Syndrome Inclusion Criteria At DC or during hospital stay patient has or had the following: ACS DIAGNOSIS No Discharge Core Measures Meds if any: Prescribed or Continued at Discharge Meds if any: NOT Prescribed or Continued at Discharge Congestive Heart Failure Inclusion Criteria At DC or during hospital stay patient has or had the following: CHF DIAGNOSIS No Discharge Core Measures Meds if any: Prescribed or Continued at Discharge Meds if any: NOT Prescribed or Continued at Discharge Cerebrovascular accident Inclusion Criteria At DC or during hospital stay patient has or had the following: CVA/TIA Diagnosis No Discharge Core Measures Meds if any: Prescribed or Continued at Discharge Meds if any: NOT Prescribed or Continued at Discharge Venous thromboembolism Inclusion Criteria VTE Diagnosis No VTE Type NONE VTE Confirmed by (Test) NONE Discharge Core Measures - Per Current guidelines, there needs to be overlap - treatment for the first 5 days of Warfarin therapy. - If discharged on Warfarin prior to 5 days of - overlap therapy, the patient will need to be - assessed for post discharge needs including - *Post discharge parental anticoagulation - *Warfarin and/or parental anticoagulation education - *Follow up date to check INR post discharge At least 5 days overlap therapy as Inpatient No Meds if any: Prescribed or Continued at Discharge Note: Overlap Therapy is Warfarin and Anticoagulant Meds if any: NOT Prescribed or Continued at Discharge
[2017-08-02 08:01] LABS: ABSOLUTE BASOPHIL COUNT 0.1 /CUMM (0.0-0.2); ABSOLUTE EOSINOPHIL COUNT 0.4 /CUMM (0.0-0.7); ABSOLUTE GRANULOCYTE CT 6.8 /CUMM (1.4-6.5); ABSOLUTE LYMPH COUNT 1.6 /CUMM (1.2-3.4); ABSOLUTE MONOCYTE COUNT 0.8 /CUMM (0.10-0.60); BASOPHIL % 0.7 % (0.0-2.0); EOSINOPHIL % 4.5 % (0-5); GRANULOCYTE % 70.3 % (42.2-75.2); HEMATOCRIT 35.1 % (42-52); MEAN CORPUSCULAR HGB 20.6 PG (27.0-31.0); MEAN CORPUSCULAR HGB CONC 31.1 G/DL (33.0-37.0); MEAN CORPUSCULAR VOLUME 66.3 FL (80.0-94.0); MEAN PLATELET VOLUME 9.4 FL (7.4-10.4); PLATELET COUNT 233 /CUMM (130-400); RBC DISTRIBUTION WIDTH 16.1 % (11.5-14.5); RED BLOOD CELL CT 5.29 /CUMM (4.70-6.10); WHITE BLOOD CELL COUNT 9.6 /CUMM (4.8-10.8)
[2017-08-02] MEDS ORDERED: CIPRO500 M1 PO ×2 (08:02→10:39)
[2017-08-02] MEDS ORDERED: FLAGYL500 MG PO ×2 (08:02→10:39)
--- NOTE | 2017-08-02 08:05 | Surg Short-stay <48hrs Dis Sum ---
Visit Information Visit Dates Admission Date: 07/30/17 Discharge Date: 08/03/17 Surgical Short Stay DC Summary Admission Diagnosis: acute sigmoid diverticulitis Final Diagnosis: SAME Procedure(s): iv antibiotics and bowel rest Summary/Significant Findings: Presented to the ED on 07/30/17 with abdominal pain. Admitted for acute sigmoid diverticulitis. Treated conservatively with iv cipro / flagyl, and bowel rest. Diet advanced slowly with improvement of symptoms and labs. Nutrition consult provided for dietary review of diverticular dietary considerations. Discharged home with oral antibiotics once tolerating a low residue diet, to complete 2 weeks total of cipro and flagyl. Condition at Discharge: stable Discharge Disposition: home or self care Discharge instructions provided to patient/family: Yes Post discharge follow-up plan: one week follow up with continue oral antibiotics as directed Copies to: José Manuel STAPLES,[place]
--- NOTE | 2017-08-02 10:13 | PN- Att Addend ---
Attending Addendum Attending Brief Note Patient sitting at the edge of the bed, he says his pain is less but he has been having frequent diarrhea. Uncomfortable at the IV site, will change Vital signs are stable, no fever white count 9600. No new changes on physical. Tolerating liquid diet will be advanced a little bit. Will check the stools for infection and treat accordingly. Intake & Output 08/02 1600 08/02 0400 08/01 1600 08/01 0400 07/31 1600 07/31 0400 Intake Total 995 1700 3325 1250 2000 500 Output Total 300 350 Balance 995 1700 3325 1250 1700 150 Intake, IV 875 1000 2825 1250 2000 500 Intake, Oral 120 700 500 0 0 Number 4 2 Bowel Movements Output, Urine 300 350 Patient 178 lb 178 lb Weight Weight Reported by Patient Measurement Method Current Medications Sig/Merline Start time Last Medication Dose Route Stop Time Status Admin Acetaminophen 1,000 MG Q6P PRN 07/31 2014 DC 07/31 N/A 1 UNIT IV 08/01 Ciprofloxacin 400 MG Q12 07/30 2100 AC 08/02 Dextrose/Water 200 ML IV 0918 Heparin Sodium 5,000 UNIT Q8 07/30 1400 AC 08/02 (Porcine) SC 0536 Hydrochlorothiazide 25 MG DAILY 07/31 0900 AC 08/02 PO 0733 Losartan Potassium 100 MG DAILY 07/31 0900 AC 08/02 PO 0733 Metronidazole 500 MG IQ8 07/30 1600 AC 08/02 N/A 1 UNIT IV 0733 Morphine Sulfate 2 MG Q4P PRN 07/30 1600 AC IV Morphine Sulfate 4 MG Q4H PRN 07/30 1600 AC 07/30 IV 1611 Ondansetron HCl 4 MG Q6P PRN 07/30 1545 AC IV Patient Medication 1 ED ONE ONE 08/01 1530 DC 08/01 Teaching ED 08/01 1531 1622 Potassium Chloride 40 MEQ Q8H 07/31 1800 DC 08/02 Dextrose/Sodium 1,000 ML IV 0535 Chloride Vital Signs Date Time Temp Pulse Resp B/P B/P Pulse O2 O2 Flow FiO2 Mean Ox Delivery Rate 08/02 0733 98.1 70 18 132/80 08/02 0620 98.1 70 18 132/80 95 Room Air 08/02 0000 Room Air 08/01 2242 98.3 88 18 126/80 94 08/01 1600 Room Air 08/01 1419 97.8 104 20 120/85 95 Room Air
[2017-08-02 14:41] VITALS: BP 110/75
[2017-08-02 22:11] VITALS: BP 132/70
[2017-08-03 06:46] VITALS: BP 136/68
--- NOTE | 2017-08-03 07:37 | PN- Student ---
Humphrey Chavez 08/03/17 0728: Subjective Subjective: Abdominal pain improved, 04/15, comes and goes. Diarrhea has stopped. Last bowel movement was yesterday. Passing gas frequently. Tolerating diet, but reduced appetite. No nausea, no vomiting. No dysuria, urinates frequently. OOB freqently. No chest pain, no shortness of breath, no calf pain. Objective Objective: Vitals: Temp: 97.8=tcurrent 98.6=tmax Pulse: 76 Respiratory Rate: 76 Blood pressure: 139/68 Pulse Ox: 94 on room air I/O's I- 920 oral 24hr, 1105 IV 24hr O: not recorded Imaging: none Physical Exam: General: no acute distress, alert and oriented Pulm: clear to auscultation bilaterally Cardio s1,s2,rrr Abdomen: softly distended, +bowel sounds, LLQ tenderness with palpation Extremities: 2+ DP/PT pulses, Calves soft and non tender bilaterally Results Results: Laboratory Tests 08/02/17 0645: CBC w Diff NO MAN DIFF REQ, RBC 5.29, MCV 66.3 L, MCH 20.6 L, MCHC 31.1 L, RDW 16.1 H, MPV 9.4, Gran % 70.3, Lymphocytes % 16.6 L, Monocytes % 7.9, Eosinophils % 4.5, Basophils % 0.7, Absolute Granulocytes 6.8 H, Absolute Lymphocytes 1.6, Absolute Monocytes 0.8 H, Absolute Eosinophils 0.4, Absolute Basophils 0.1 08/01/17 0715: Anion Gap 11, Estimated GFR 54 L, BUN/Creatinine Ratio 10.8, CBC w Diff NO MAN DIFF REQ, RBC 5.64, MCV 66.1 L, MCH 20.8 L, MCHC 31.5 L, RDW 16.2 H, MPV 9.3 , Gran % 78.5 H, Lymphocytes % 12.0 L, Monocytes % 6.5, Eosinophils % 2.9, Basophils % 0.1, Absolute Granulocytes 10.0 H, Absolute Lymphocytes 1.5, Absolute Monocytes 0.8 H, Absolute Eosinophils 0.4, Absolute Basophils 0 07/31/17 0815: Anion Gap 11, Estimated GFR 50 L, BUN/Creatinine Ratio 12.9, CBC w Diff NO MAN DIFF REQ, RBC 5.18, MCV 65.8 L, MCH 20.8 L, MCHC 31.6 L, RDW 16.0 H, MPV 9.5 , Gran % 74.5, Lymphocytes % 15.4 L, Monocytes % 7.6, Eosinophils % 2.0, Basophils % 0.5, Absolute Granulocytes 9.3 H, Absolute Lymphocytes 1.9, Absolute Monocytes 1.0 H, Absolute Eosinophils 0.3, Absolute Basophils 0.1 Microbiology 08/02 1450 STOOL: Clostridium difficile Toxin A & B - RECD Assessment/Plan Assessment: 71 year old male Hospital day 4 with perforated diverticulitis doing well with improved pain, no more diarrhea, and tolerating diet Plan: Plan for DC pending labs change Cipro/flagyl to PO and continue Abx course at home Advance to low res diet Continue home meds continue pain control PRN Continue Zofran Prn Continue DVT prophylaxis Discuss with preceptor Orlin Avila 08/03/17 1700: Assessment/Plan Plan: Seen and examined with Humphrey COLEY earlier this morning. Agree with above. Diarrhea resolved, c.diff negative. LLQ significantly improved since admission. Advance to low residue diet. D/c pending diet tolerance. D/c with oral antibiotics, cipro and flagyl.
[2017-08-03 08:59] LABS: ABSOLUTE BASOPHIL COUNT 0 /CUMM (0.0-0.2); ABSOLUTE EOSINOPHIL COUNT 0.4 /CUMM (0.0-0.7); ABSOLUTE GRANULOCYTE CT 6.1 /CUMM (1.4-6.5); ABSOLUTE LYMPH COUNT 2.2 /CUMM (1.2-3.4); ABSOLUTE MONOCYTE COUNT 0.6 /CUMM (0.10-0.60); BASOPHIL % 0.5 % (0.0-2.0); EOSINOPHIL % 4.8 % (0-5); GRANULOCYTE % 64.9 % (42.2-75.2); HEMATOCRIT 34.8 % (42-52); MEAN CORPUSCULAR VOLUME 65.6 FL (80.0-94.0); MEAN PLATELET VOLUME 8.9 FL (7.4-10.4); PLATELET COUNT 259 /CUMM (130-400); RBC DISTRIBUTION WIDTH 15.7 % (11.5-14.5); WHITE BLOOD CELL COUNT 9.3 /CUMM (4.8-10.8)
--- NOTE | 2017-08-03 10:56 | PN- Att Addend ---
Attending Addendum Attending Brief Note Patient anxious to go home stated when he was checked this morning by surgery had some discomfort and pain when deep palpation to the left lower quadrant was done. His vital signs are stable he has no fever his white count is normal tolerating the fluids by mouth well the diet was increased. Check later on by surgery if stable may be start disposition plans. Intake & Output 08/03 1600 08/03 0400 08/02 1600 08/02 0400 08/01 1600 08/01 0400 Intake Total 600 8469 247 7605 3325 1250 Output Total Balance 600 5511 107 6598 3325 1250 Intake, IV 486 161 6253 2825 1250 Intake, Oral 600 800 120 700 500 Number 4 2 Bowel Movements Patient 178 lb Weight Current Medications Sig/Merline Start time Last Medication Dose Route Stop Time Status Admin Ciprofloxacin 400 MG Q12 07/30 2100 AC 08/03 Dextrose/Water 200 ML IV 0856 Heparin Sodium 5,000 UNIT Q8 07/30 1400 AC 08/03 (Porcine) SC 0536 Hydrochlorothiazide 25 MG DAILY 07/31 09 AC 08/03 PO 0855 Losartan Potassium 100 MG DAILY 07/31 0900 AC 08/03 PO 0856 Metronidazole 500 MG Q8 08/02 1600 AC 08/03 PO 0536 Metronidazole 500 MG IQ8 07/30 1600 DC 08/02 N/A 1 UNIT IV 0733 Morphine Sulfate 2 MG Q4P PRN 07/30 1600 AC IV Morphine Sulfate 4 MG Q4H PRN 07/30 1600 AC 07/30 IV 1611 Ondansetron HCl 4 MG Q6P PRN 07/30 1545 AC IV Laboratory Tests 08/03/17 0830: CBC w Diff NO MAN DIFF REQ, RBC 5.30, MCV 65.6 L, MCH 21.0 L, MCHC 32.0 L, RDW 15.7 H, MPV 8.9, Gran % 64.9, Lymphocytes % 23.2, Monocytes % 6.6, Eosinophils % 4.8, Basophils % 0.5, Absolute Granulocytes 6.1, Absolute Lymphocytes 2.2, Absolute Monocytes 0.6, Absolute Eosinophils 0.4, Absolute Basophils 0 08/02/17 0645: CBC w Diff NO MAN DIFF REQ, RBC 5.29, MCV 66.3 L, MCH 20.6 L, MCHC 31.1 L, RDW 16.1 H, MPV 9.4, Gran % 70.3, Lymphocytes % 16.6 L, Monocytes % 7.9, Eosinophils % 4.5, Basophils % 0.7, Absolute Granulocytes 6.8 H, Absolute Lymphocytes 1.6, Absolute Monocytes 0.8 H, Absolute Eosinophils 0.4, Absolute Basophils 0.1 08/01/17 0715: Anion Gap 11, Estimated GFR 54 L, BUN/Creatinine Ratio 10.8, CBC w Diff NO MAN DIFF REQ, RBC 5.64, MCV 66.1 L, MCH 20.8 L, MCHC 31.5 L, RDW 16.2 H, MPV 9.3 , Gran % 78.5 H, Lymphocytes % 12.0 L, Monocytes % 6.5, Eosinophils % 2.9, Basophils % 0.1, Absolute Granulocytes 10.0 H, Absolute Lymphocytes 1.5, Absolute Monocytes 0.8 H, Absolute Eosinophils 0.4, Absolute Basophils 0 Microbiology 08/02 1450 STOOL: Clostridium difficile Toxin A & B - RECD Microbiology 08/02 1450 STOOL: Clostridium difficile Toxin A & B - RECD Vital Signs Date Time Temp Pulse Resp B/P B/P Pulse O2 O2 Flow FiO2 Mean Ox Delivery Rate 08/03 0856 97.8 76 18 136/68 08/03 0646 97.8 76 18 136/68 94 Room Air 08/02 2211 98.6 91 20 132/70 95 Room Air 08/02 1441 97.5 84 20 110/75 97 Room Air Patient had a "normal" bowel movement today. Stool for C. difficile is pending.
[2017-08-03 14:59] VITALS: BP 128/72
[2017-08-03] MEDS ORDERED: CIPRO500 M1 PO (16:06)
[2017-08-03] MEDS ORDERED: FLAGYL500 MG PO (16:06)
== END 2017-08-03 16:39 | DRG 392 ==
LOC: ERH 07:24 → ERHI 10:05 → 2NA 10:05 → ENRESERV 13:36 → ENTRNSPT 14:18 → EDTRNSPTSTS 14:57 → 2NA 15:04 → CMPTRNSPT 15:26 → 2NA 16:34
PROVIDERS: Emergency Medicine; Physician Assistant; Physician Assistant Surgical
DX: K57.32 Diverticulitis of large intestine without perforation or abscess without bleeding (principal); Z88.0 Allergy status to penicillin; R19.7 Diarrhea, unspecified
CPT/HCPCS: 2NAP; 2NASP; 36592; 74176; 81003; 82436; 87086; 93005; 93010; 96361; 96374; 96375; 99291; J0131; J0744; J1644; J2405; J3480; J3490; J7042; J7060; S5012